=== PATIENT | male | born 1935 ===

== ENCOUNTER 2018-03-11 19:22 | Inpatient (IN) | payer MEDICARE, OTHER ==
[~2018-03-11] VITALS: Ht 165.1 cm; Wt 68.0 kg
[~2018-03-11 19:22] MED LIST: ATEN25TA PO; DIAZ5TAB4 PO; FOLI1TAB16 PO; MEGE400O4 PO; METO-295 PO; TAMS0.4C34 PO; VORT10TA PO
[2018-03-11] MEDS ORDERED: Z GUARD REMEDY PASTE 57 GM TUBE TOP PRN (19:45)
[2018-03-11] MEDS ORDERED: LOTE5DRO3 EACHEYE (20:17)
[2018-03-11] MEDS ORDERED: TRAM50TA2 PO (20:17)
[2018-03-11] MEDS ORDERED: AZEL6DRO5 EACHEYE (20:17)
[2018-03-11] MEDS ORDERED: PREG75CA PO (20:17)
[2018-03-11] MEDS ORDERED: THIA100T74 PO (20:17)
[2018-03-11] MEDS ORDERED: VORT10TA PO (20:17)
[2018-03-11] MEDS ORDERED: TAMS0.4C34 PO (20:17)
[2018-03-11] MEDS ORDERED: KETO120S6 TP (20:17)
[2018-03-11] MEDS ORDERED: ASPI-605 PO (20:17)
[2018-03-11] MEDS ORDERED: MEGE625O3 PO (20:17)
[2018-03-11] MEDS ORDERED: FAMO20TA8 PO (20:17)
[2018-03-11] MEDS ORDERED: ALPR1TAB7 PO (20:17)
[2018-03-11] MEDS ORDERED: METO-356 PO (20:17)
[2018-03-11] MEDS ORDERED: FOLI1TAB16 PO (20:17)
[2018-03-11] MEDS ORDERED: CLOP75TA33 PO (20:17)
[2018-03-11] MEDS ORDERED: LORA10TA7 PO (20:17)
[2018-03-11] MEDS ORDERED: ATOR80TA PO (20:17)
[2018-03-11 20:30] VITALS: BP 125/69
--- NOTE | 2018-03-11 20:30 | NUR ---
Patient is a new admit from [facility] arrived via ambulance/stretcher. Patient in stable condition with no acute distress noted. Vital signs within range upon arrival. Admit Dx of Acute CVA. Noted with right sided weakness. Patient is A/Ox1-2, with slurred speech & is Farsi speaking only. Daughter at the bedside & requesting to stay with patient at all times during hospital stay. MD Young aware of patient arrival to unit. Pertinent assessment completed upon arrival. Skin is intact. Bed in low position & locked. Call light placed within reach of patient. Will continue to monitor through shift.
[2018-03-11] MEDS ORDERED: DIAZEPAM 5 MG TABLET PO PRN (21:15)
--- NOTE | 2018-03-11 21:30 | NUR ---
Patient refusing stroke assessment upon arrival. Daughter of patient requesting for assessment/pics to be completed in AM or during the day tomorrow. Will endorse to day shift nurse.
[2018-03-11] MEDS ORDERED: KETOCONAZOLE 2% SHAMPOO 120 ML BOTTLE TP PRN (22:00)
[2018-03-12 06:18] VITALS: BP 129/69
--- NOTE | 2018-03-12 06:28 | NUR ---
Patient slept well through the night. No acute distress noted. Daughter remained at the bedside. Vital signs this AM within range. Needs attended to promptly. Safety measures maintained through the shift. Call light within reach. Will endorse to day shift nurse.
[2018-03-12 08:00] VITALS: BP 139/70
[2018-03-12] MEDS: THIAMINE HCL 100 MG TABLET PO SCH (08:49)
[2018-03-12] MEDS: PREGABALIN 25 MG CAPSULE PO SCH ×2 (08:50→17:46)
[2018-03-12] MEDS: CLOPIDOGREL 75 MG TABLET PO SCH (08:50)
[2018-03-12] MEDS: ASPIRIN EC 81 MG TABLET.DR PO SCH (08:50)
[2018-03-12] MEDS: TAMSULOSIN HCL 0.4 MG CAP.SR.24H PO SCH (08:50)
[2018-03-12] MEDS: FOLIC ACID 1 MG TABLET PO SCH (08:50)
[2018-03-12] MEDS: METOPROLOL SUCCINATE XL 25 MG TAB.SR.24H PO SCH (08:51)
[2018-03-12] MEDS: ATENOLOL 25 MG TABLET PO SCH (08:51)
[2018-03-12] MEDS ORDERED: MEGESTROL ACETATE 400 MG/10 ML LIQUID UDC PO SCH (09:00)
[2018-03-12] MEDS: FAMOTIDINE 20 MG TABLET PO SCH ×2 (09:00→17:47)
[2018-03-12] MEDS ORDERED: LOTEPREDNOL 0.5% OPHT DROP 5 ML BOTTLE EACHEYE SCH (09:00)
[2018-03-12 10:10] LABS: BASOPHILS # (AUTO) 0.1 K/uL (0.0-8.0); BASOPHILS % (AUTO) 0.9 % (0.0-2.0); EOSINOPHILS # (AUTO) 0.3 K/uL (0.0-0.7); EOSINOPHILS % (AUTO) 3.5 % (0.0-7.0); HEMATOCRIT 38.1 % (36.7-47.1); HEMOGLOBIN 12.8 g/dL (12.5-16.3); LYMPHOCYTES # (AUTO) 2.7 K/uL (20.0-40.0); LYMPHOCYTES % (AUTO) 30.7 % (20.5-51.5); MEAN CORPUSCULAR HEMOGLOBIN 33.8 uug (23.8-33.4); MEAN CORPUSCULAR HGB CONC 34 g/dL (32.5-36.3); MEAN CORPUSCULAR VOLUME 100.8 fL (73.0-96.2); MONOCYTES # (AUTO) 0.8 K/uL (2.0-10.0); MONOCYTES % (AUTO) 8.6 % (0.0-11.0); NEUTROPHILS % (AUTO) 56.3 % (38.5-71.5); PLATELET COUNT (AUTO) 185 K/uL (152-348); RED BLOOD CELL COUNT(AUTO) 3.78 MIL/uL (4.06-5.63); WHITE BLOOD COUNT (AUTO) 8.9 K/uL (3.6-10.2)
[2018-03-12] MEDS: MIRTAZAPINE 15 MG TABLET PO SCH ×2 (10:15→20:12)
[2018-03-12 10:24] LABS: ALANINE AMINOTRANSFERASE 32 U/L (16-63); ALKALINE PHOSPHATASE 59 U/L (50-136); ASPARTATE AMINOTRANSFERASE 33 U/L (15-37); BILIRUBIN,TOTAL 0.4 mg/dL (0.2-1.0); CARBON DIOXIDE 27 mmol/L (21-32); CHLORIDE 108 mmol/L (98-107); CHOLESTEROL 126 mg/dL (<200); CREATININE 1.4 mg/dL (0.6-1.3); GLUCOSE 91 mg/dL (74-106); HDL CHOLESTEROL 64 mg/dL (40-60); POTASSIUM 3.9 mmol/L (3.5-5.1); TOTAL PROTEIN, SERUM 6.5 g/dL (6.4-8.2); TRIGLYCERIDES 80 MG/DL (30-150); UREA NITROGEN, BLOOD 13 mg/dL (7-18)
[2018-03-12 16:00] VITALS: BP 132/74
[2018-03-12] MEDS: ACETAMINOPHEN 325 MG TABLET PO PRN (17:47)
--- NOTE | 2018-03-12 19:28 | NUR ---
Received pt in bed, awake and alert, able to communicate needs via daughter, who is at bedside. Per AM nurse gave ok for daughter to stay 24 hrs for care and translation. No acute distress noted. Denies pain or discomfort but verbalizing stress. All safety measures and fall precautions maintained. Call light and all personal belongings within reach. Will continue to monitor.
[2018-03-12] MEDS ORDERED: diphenhydrAMINE 25 MG CAP PO PRN (19:30)
[2018-03-12 19:50] VITALS: BP 140/79
[2018-03-12] MEDS: ATORVASTATIN 40 MG TABLET PO SCH (20:12)
[2018-03-13 06:07] VITALS: BP 115/52
[2018-03-13] MEDS: ACETAMINOPHEN 325 MG TABLET PO PRN (06:20)
[2018-03-13 07:09] VITALS: BP_SYST 110; BP_SYST 143; BP_DIAS 57; BP_DIAS 86
[2018-03-13] MEDS: CLOPIDOGREL 75 MG TABLET PO SCH (08:53)
[2018-03-13] MEDS: THIAMINE HCL 100 MG TABLET PO SCH (08:53)
[2018-03-13] MEDS: FAMOTIDINE 20 MG TABLET PO SCH (08:53)
[2018-03-13] MEDS: TAMSULOSIN HCL 0.4 MG CAP.SR.24H PO SCH (08:54)
[2018-03-13] MEDS: ASPIRIN EC 81 MG TABLET.DR PO SCH (08:54)
[2018-03-13] MEDS: FOLIC ACID 1 MG TABLET PO SCH (08:54)
[2018-03-13] MEDS: ATENOLOL 25 MG TABLET PO SCH (08:55)
[2018-03-13] MEDS: METOPROLOL SUCCINATE XL 25 MG TAB.SR.24H PO SCH (08:56)
[2018-03-13] MEDS: PREGABALIN 25 MG CAPSULE PO SCH ×2 (08:56→17:06)
[2018-03-13] MEDS: ALPRAZOLAM 0.5 MG TABLET PO PRN (08:59)
[2018-03-13] MEDS: NICOTINE 14 MG/24HR PATCH TD SCH (13:45)
[2018-03-13] MEDS: MAGNESIUM HYDROXIDE 30 ML LIQUID UDC PO PRN (13:46)
[2018-03-13 16:06] VITALS: BP 143/75
--- NOTE | 2018-03-13 18:52 | NUR ---
Pt has family visiting at the bedside currently. No complaint of pain. Bed in lowest and locked position. Side rails up x2. Pt compliant with all routinely scheduled medication administration, Xanax administered this morning for increased anxiety. All needs attended to promptly throughout the shift. Call light and personal belongings with reach. Pt seen by MD, eye drops d/c due r/t not being necessary at this time. Will continue to monitor and endorse to on coming shift lab technician.
[2018-03-13] MEDS: ATORVASTATIN 40 MG TABLET PO SCH (20:34)
[2018-03-13] MEDS: MIRTAZAPINE 15 MG TABLET PO SCH (20:36)
[2018-03-13 20:41] VITALS: BP 105/59
--- NOTE | 2018-03-14 01:07 | NUR ---
resting at the beginning of the shift. no acute distress noted. needs attended.daughter in with patient. tolerated po meds well.fall precautions maintained. admitted for CVA with right sided weakness. Speech slurred. Aspiration precautions. will monitor patient.
--- NOTE | 2018-03-14 05:09 | NUR ---
slept most of the shift. no acute distress noted needs attended. continent of bowel and bladder. repositioned for comfort.turned to sides. daughter at bedside.denies any pain nor any discomfort.
[2018-03-14 05:48] VITALS: BP 118/72
[2018-03-14 08:00] VITALS: BP 113/57
--- NOTE | 2018-03-14 08:45 | NUR ---
Received patient, awake alert x3. With daughter at bedside. No chest pains SOB. Still with Right sided weakness. Denies any pain. Patient refused Lyrica medications, discussed risks and benefits but patient still refused.
[2018-03-14] MEDS: PREGABALIN 25 MG CAPSULE PO SCH ×2 (09:00→17:26)
[2018-03-14] MEDS: METOPROLOL SUCCINATE XL 25 MG TAB.SR.24H PO SCH (09:02)
[2018-03-14] MEDS: FAMOTIDINE 20 MG TABLET PO SCH (09:02)
[2018-03-14] MEDS: TAMSULOSIN HCL 0.4 MG CAP.SR.24H PO SCH (09:03)
[2018-03-14] MEDS: THIAMINE HCL 100 MG TABLET PO SCH (09:03)
[2018-03-14] MEDS: CLOPIDOGREL 75 MG TABLET PO SCH (09:03)
[2018-03-14] MEDS: ATENOLOL 25 MG TABLET PO SCH (09:03)
[2018-03-14] MEDS: ASPIRIN EC 81 MG TABLET.DR PO SCH (09:04)
[2018-03-14] MEDS: NICOTINE 14 MG/24HR PATCH TD SCH (09:04)
[2018-03-14] MEDS: FOLIC ACID 1 MG TABLET PO SCH (09:07)
--- NOTE | 2018-03-14 11:53 | NUR ---
Up with physical and occupational therapy. In shower, tolerating well.
[2018-03-14] MEDS: [UNRECOGNIZED DRUG - OTHER] PO PRN (17:26)
[2018-03-14] MEDS: ATORVASTATIN 40 MG TABLET PO SCH (18:24)
[2018-03-14] MEDS: MIRTAZAPINE 15 MG TABLET PO SCH (18:24)
--- NOTE | 2018-03-14 19:55 | NUR ---
awake at beginning of shift. no acute distress noted. kept comfortable. needs attended. compliant with meds. on continous O2 @ 2L via nasal cannula. pulse ox 95%. daughter in with patient. voiding well. denies any pain nor any discomfort. will monitor patient.
[2018-03-14 20:25] VITALS: BP 105/64
--- NOTE | 2018-03-15 04:55 | NUR ---
slept well. no acute distress noted. daughter with patient. kept comfortable. voiding without difficulty. fall precautions maintained. siderails up for safety.
[2018-03-15 05:03] VITALS: BP 108/58
[2018-03-15 08:00] VITALS: BP 113/67
--- NOTE | 2018-03-15 08:45 | NUR ---
Received patient awake, alert x3. With daughter at bedside. Not in any form of distress. With pain over lower back, PRN Tylenol given.
[2018-03-15] MEDS: PREGABALIN 25 MG CAPSULE PO SCH ×2 (09:00→16:51)
[2018-03-15] MEDS: NICOTINE 14 MG/24HR PATCH TD SCH (09:01)
[2018-03-15] MEDS: FAMOTIDINE 20 MG TABLET PO SCH (09:02)
[2018-03-15] MEDS: CLOPIDOGREL 75 MG TABLET PO SCH (09:02)
[2018-03-15] MEDS: ATENOLOL 25 MG TABLET PO SCH (09:02)
[2018-03-15] MEDS: TAMSULOSIN HCL 0.4 MG CAP.SR.24H PO SCH (09:03)
[2018-03-15] MEDS: METOPROLOL SUCCINATE XL 25 MG TAB.SR.24H PO SCH (09:03)
[2018-03-15] MEDS: ASPIRIN EC 81 MG TABLET.DR PO SCH (09:03)
[2018-03-15] MEDS: FOLIC ACID 1 MG TABLET PO SCH (09:03)
[2018-03-15] MEDS: ACETAMINOPHEN 325 MG TABLET PO PRN ×2 (09:03→20:14)
[2018-03-15] MEDS: THIAMINE HCL 100 MG TABLET PO SCH (09:03)
--- NOTE | 2018-03-15 10:22 | NUR ---
Up with physical therapy, tolerating well. No complaints of pain or discomfort.
--- NOTE | 2018-03-15 13:48 | NUR ---
INTERDISCIPLINARY TEAM CONFERENCE
--- NOTE | 2018-03-15 15:15 | NUR ---
I agree Addendum: 03/15/18 at 1515 by LD BROWER OT Amended: Links added.
--- NOTE | 2018-03-15 15:16 | NUR ---
I agree Addendum: 03/15/18 at 1516 by LD BROWER OT Amended: Links added.
[2018-03-15 16:00] VITALS: BP 114/63
[2018-03-15] MEDS: [UNRECOGNIZED DRUG - OTHER] PO PRN (16:50)
[2018-03-15] MEDS: ATORVASTATIN 40 MG TABLET PO SCH (16:51)
[2018-03-15] MEDS: MIRTAZAPINE 15 MG TABLET PO SCH (18:03)
--- NOTE | 2018-03-15 19:30 | NUR ---
Patient stable at start of shift with no acute distress noted. Patient is A/Ox2-3, Farsi speaking, & hard to understand. Noted with slurred & gargled speech. Daughter at the bedside. Pertinent assessment completed. Skin is intact & clear. Patient complaining of SOB per daughter. O2 sat checked at 97% on 2L oxygen via NC. Elevated HOB. Patient's breathing is unlabored. Will continue to monitor for SOB. Vital signs within range. Bed in low position & locked. Call light within reach. Will continue to monitor through shift.
[2018-03-15] MEDS: MAGNESIUM HYDROXIDE 30 ML LIQUID UDC PO PRN (20:13)
[2018-03-15 21:06] VITALS: BP 119/67
[2018-03-16 08:03] VITALS: BP 103/54
[2018-03-16] MEDS: METOPROLOL SUCCINATE XL 25 MG TAB.SR.24H PO SCH (09:00)
[2018-03-16] MEDS: ATENOLOL 25 MG TABLET PO SCH (09:00)
[2018-03-16] MEDS: NICOTINE 14 MG/24HR PATCH TD SCH (09:46)
[2018-03-16] MEDS: TAMSULOSIN HCL 0.4 MG CAP.SR.24H PO SCH (09:46)
[2018-03-16] MEDS: ASPIRIN EC 81 MG TABLET.DR PO SCH (09:46)
[2018-03-16] MEDS: FAMOTIDINE 20 MG TABLET PO SCH (09:46)
[2018-03-16] MEDS: PREGABALIN 25 MG CAPSULE PO SCH ×2 (09:46→17:19)
[2018-03-16] MEDS: THIAMINE HCL 100 MG TABLET PO SCH (09:47)
[2018-03-16] MEDS: FOLIC ACID 1 MG TABLET PO SCH (09:47)
[2018-03-16] MEDS: CLOPIDOGREL 75 MG TABLET PO SCH (09:47)
[2018-03-16] MEDS: [UNRECOGNIZED DRUG - OTHER] PO PRN ×2 (09:48→20:06)
[2018-03-16 16:20] VITALS: BP 106/64
[2018-03-16] MEDS: MIRTAZAPINE 15 MG TABLET PO SCH (17:20)
[2018-03-16] MEDS: ACETAMINOPHEN ES 500 MG TABLET PO SCH (17:20)
[2018-03-16] MEDS: ATORVASTATIN 40 MG TABLET PO SCH (17:20)
--- NOTE | 2018-03-16 19:30 | NUR ---
PT ALERT AND ORIENTED. NO DISTRESS NOTED. COMPLAINT WITH NURSING CARE. FAMILY REQUESTING PT OWN MEDICATION FOR CONSTIPATION ALONG WITH THE DULCOLAX. BOTH GIVEN REQUESTED. SAFETY MAINTAINED. CALL LIGHT WITHIN REACH. WILL CONTINUE TO MONITOR.
[2018-03-16] MEDS: ACETAMINOPHEN 325 MG TABLET PO PRN (20:06)
[2018-03-16] MEDS: BISACODYL 5 MG TABLET.DR PO PRN (20:06)
[2018-03-16 20:41] VITALS: BP 115/61
--- NOTE | 2018-03-17 06:55 | NUR ---
PT RESTING IN BED. NO DISTRESS NOTED. COMPLIANT WITH NURSING CARE. SLEPT WELL THROUGHOUT THE NIGHT. CLEAN AND DRY. SAFETY MAINTAINED. CALL LIGHT WITHIN REACH.
[2018-03-17 08:20] VITALS: BP 117/69
[2018-03-17] MEDS: FAMOTIDINE 20 MG TABLET PO SCH (09:19)
[2018-03-17] MEDS: CLOPIDOGREL 75 MG TABLET PO SCH (09:19)
[2018-03-17] MEDS: THIAMINE HCL 100 MG TABLET PO SCH (09:19)
[2018-03-17] MEDS: ACETAMINOPHEN ES 500 MG TABLET PO SCH ×2 (09:19→17:53)
[2018-03-17] MEDS: ASPIRIN EC 81 MG TABLET.DR PO SCH (09:19)
[2018-03-17] MEDS: FOLIC ACID 1 MG TABLET PO SCH (09:19)
[2018-03-17] MEDS: PREGABALIN 25 MG CAPSULE PO SCH ×2 (09:20→17:53)
[2018-03-17] MEDS: NICOTINE 14 MG/24HR PATCH TD SCH (09:20)
[2018-03-17] MEDS: TAMSULOSIN HCL 0.4 MG CAP.SR.24H PO SCH (09:20)
[2018-03-17] MEDS: ATENOLOL 25 MG TABLET PO SCH (09:21)
[2018-03-17] MEDS: METOPROLOL SUCCINATE XL 25 MG TAB.SR.24H PO SCH (09:21)
[2018-03-17 16:05] VITALS: BP 127/64
[2018-03-17] MEDS: MIRTAZAPINE 15 MG TABLET PO SCH (17:54)
[2018-03-17] MEDS: ATORVASTATIN 40 MG TABLET PO SCH (17:54)
[2018-03-17] MEDS: [UNRECOGNIZED DRUG - OTHER] PO PRN (17:55)
[2018-03-17 19:30] VITALS: BP 128/70
--- NOTE | 2018-03-17 19:45 | NUR ---
Received pt in bed, awake and alert with daughter at bedside. Verbally responsive and able to communicate basic needs. Denies pain or discomfort at this time. No facial indications of pain noted. No acute distress noted. All safety measures and fall precautions maintained. Call light and all personal belongings within reach. Will continue to monitor.
--- NOTE | 2018-03-18 06:59 | NUR ---
Pt SLEPT WELL THROUGHOUT THE NIGHT WITHOUT ANY DISRUPTIONS. IN STABLE CONDITION, NO DISTRESS NOTED. CONTINUES TO BE COMPLIANT AND COOPERATIVE WITH MEDS AND CARE STAFF.
[2018-03-18 08:00] VITALS: BP 131/74
[2018-03-18] MEDS: NICOTINE 14 MG/24HR PATCH TD SCH (08:40)
[2018-03-18] MEDS: THIAMINE HCL 100 MG TABLET PO SCH (08:41)
[2018-03-18] MEDS: ACETAMINOPHEN ES 500 MG TABLET PO SCH ×2 (08:41→17:15)
[2018-03-18] MEDS: FAMOTIDINE 20 MG TABLET PO SCH (08:41)
[2018-03-18] MEDS: FOLIC ACID 1 MG TABLET PO SCH (08:41)
[2018-03-18] MEDS: CLOPIDOGREL 75 MG TABLET PO SCH (08:41)
[2018-03-18] MEDS: TAMSULOSIN HCL 0.4 MG CAP.SR.24H PO SCH (08:41)
[2018-03-18] MEDS: PREGABALIN 25 MG CAPSULE PO SCH ×2 (08:41→17:15)
[2018-03-18] MEDS: ASPIRIN EC 81 MG TABLET.DR PO SCH (08:41)
[2018-03-18] MEDS: MULTIVIT, IRON, MIN NO. 8, FA TABLET PO SCH (08:41)
[2018-03-18] MEDS: ATENOLOL 25 MG TABLET PO SCH (08:42)
[2018-03-18] MEDS: METOPROLOL SUCCINATE XL 25 MG TAB.SR.24H PO SCH (08:42)
--- NOTE | 2018-03-18 09:31 | NUR ---
patient noted sitting up on the side of the bed, family at bedside, no complaints of pain, no signs of distress noted, call light placed in reach, bed locked and in lowest position, x 2 bed rails
[2018-03-18 16:00] VITALS: BP 106/59
--- NOTE | 2018-03-18 16:21 | NUR ---
I agree Addendum: 03/18/18 at 1622 by LD BROWER OT Amended: Links added.
[2018-03-18] MEDS: ATORVASTATIN 40 MG TABLET PO SCH (17:15)
[2018-03-18] MEDS: MIRTAZAPINE 15 MG TABLET PO SCH (17:16)
[2018-03-18] MEDS: [UNRECOGNIZED DRUG - OTHER] PO PRN (17:18)
[2018-03-18 19:30] VITALS: BP 145/77
--- NOTE | 2018-03-18 20:00 | NUR ---
Resting comfortably in bed, with at bedside. 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 Per , pt is fully oriented. Speech somewhat garbled. Nursing comfort measures observed. HOB up at all times; aspiration precautions observed. Safety measures maintained.
[2018-03-18] MEDS: ACETAMINOPHEN 325 MG TABLET PO PRN (20:10)
[2018-03-19] MEDS: ACETAMINOPHEN 325 MG TABLET PO PRN (02:38)
--- NOTE | 2018-03-19 02:39 | NUR ---
Pt WOKE UP COMPLAINING OF PAIN ON LEFT LEG. REQUESTED FOR PAIN MEDS, VS STABLE, ADMINISTERED TYLENOL 650 MG PO PRN PER MD ORDER.
[2018-03-19 07:43] LABS: BASOPHILS % (AUTO) 0.3 % (0.0-2.0); EOSINOPHILS # (AUTO) 0.5 K/uL (0.0-0.7); EOSINOPHILS % (AUTO) 4.7 % (0.0-7.0); HEMATOCRIT 33.5 % (36.7-47.1); HEMOGLOBIN 11.5 g/dL (12.5-16.3); LYMPHOCYTES # (AUTO) 4.9 K/uL (20.0-40.0); LYMPHOCYTES % (AUTO) 46.1 % (20.5-51.5); MEAN CORPUSCULAR HEMOGLOBIN 34.5 uug (23.8-33.4); MEAN CORPUSCULAR HGB CONC 34 g/dL (32.5-36.3); MEAN CORPUSCULAR VOLUME 100.3 fL (73.0-96.2); MONOCYTES % (AUTO) 9.1 % (0.0-11.0); NEUTROPHILS # (AUTO) 4.2 K/uL (1.8-8.9); NEUTROPHILS % (AUTO) 39.8 % (38.5-71.5); PLATELET COUNT (AUTO) 203 K/uL (152-348); RED BLOOD CELL COUNT(AUTO) 3.34 MIL/uL (4.06-5.63); WHITE BLOOD COUNT (AUTO) 10.7 K/uL (3.6-10.2)
[2018-03-19 07:45] LABS: ALANINE AMINOTRANSFERASE 29 U/L (16-63); ALKALINE PHOSPHATASE 67 U/L (50-136); ASPARTATE AMINOTRANSFERASE 17 U/L (15-37); BILIRUBIN,TOTAL 0.1 mg/dL (0.2-1.0); CARBON DIOXIDE 29 mmol/L (21-32); CHLORIDE 108 mmol/L (98-107); CREATININE 1.6 mg/dL (0.6-1.3); GLUCOSE 90 mg/dL (74-106); POTASSIUM 4.5 mmol/L (3.5-5.1); TOTAL PROTEIN, SERUM 6.2 g/dL (6.4-8.2); UREA NITROGEN, BLOOD 30 mg/dL (7-18)
--- NOTE | 2018-03-19 07:49 | NUR ---
Patient noted resting in bed with eyes closed, daughter noted at bedside, no facial cues of pain, no signs of distress noted, call light in reach, bed locked and in lowest position, x [address], all needs met at this time.
[2018-03-19 08:00] VITALS: BP 113/66
[2018-03-19] MEDS: ASPIRIN EC 81 MG TABLET.DR PO SCH (08:44)
[2018-03-19] MEDS: PREGABALIN 25 MG CAPSULE PO SCH ×2 (08:44→17:17)
[2018-03-19] MEDS: FOLIC ACID 1 MG TABLET PO SCH (08:45)
[2018-03-19] MEDS: MULTIVIT, IRON, MIN NO. 8, FA TABLET PO SCH (08:45)
[2018-03-19] MEDS: ATENOLOL 25 MG TABLET PO SCH (08:45)
[2018-03-19] MEDS: ACETAMINOPHEN ES 500 MG TABLET PO SCH ×2 (08:46→17:17)
[2018-03-19] MEDS: TAMSULOSIN HCL 0.4 MG CAP.SR.24H PO SCH (08:46)
[2018-03-19] MEDS: THIAMINE HCL 100 MG TABLET PO SCH (08:46)
[2018-03-19] MEDS: METOPROLOL SUCCINATE XL 25 MG TAB.SR.24H PO SCH (08:46)
[2018-03-19] MEDS: CLOPIDOGREL 75 MG TABLET PO SCH (08:47)
[2018-03-19] MEDS: FAMOTIDINE 20 MG TABLET PO SCH (08:47)
[2018-03-19] MEDS: NICOTINE 14 MG/24HR PATCH TD SCH (08:47)
[2018-03-19 15:19] LABS: *BILIRUBIN,URIN NEGATIVE (NEGATIVE); *BLOOD, URINE NEGATIVE (NEGATIVE); *CLARITY,URINE CLEAR (CLEAR); *COLOR,URINE YELLOW (YELLOW); *KETONES,URINE NEGATIVE (NEGATIVE); *PROTEIN,URINE NEGATIVE (NEGATIVE); *UROBILINOGEN,URINE 0.2 E.U./dl (NORMAL); LEUKOCYTE ESTERASE ,URINE NEGATIVE (NEGATIVE); NITRITE, URINE NEGATIVE (NEGATIVE); PH,URINE 5.5 (5.0-8.0); UGLUCOSE NEGATIVE (NEGATIVE)
[2018-03-19 15:26] LABS: BACTERIA,URINE NONE SEEN /HPF (NONE SEEN); RBC,URINE 0-3 /HPF (0-3); SQUAMOUS EPITHELIAL CELL,UR FEW /HPF (NONE SEEN); WBC,URINE NONE SEEN /HPF (0-3)
--- NOTE | 2018-03-19 16:18 | NUR ---
I agree Addendum: 03/19/18 at 1618 by LD BROWER OT Amended: Links added.
--- NOTE | 2018-03-19 16:19 | NUR ---
I agree Addendum: 03/19/18 at 1619 by LD BROWER OT Amended: Links added.
[2018-03-19] MEDS: MIRTAZAPINE 15 MG TABLET PO SCH (17:17)
[2018-03-19] MEDS: ATORVASTATIN 40 MG TABLET PO SCH (17:17)
--- NOTE | 2018-03-19 20:00 | NUR ---
RECEIVED PATIENT ASLEEP IN BED. EASILY AROUSABLE, BUT FALLS BACK ASLEEP. NO S/S OF ANY PAIN OR DISCOMFORT. VS WNL. NO RESP. DISTRESS NOTED. CALL LIGHT IN REACH. ALL NEEDS ATTENDED. WILL CONTINUE TO MONITOR AND ASSESS.
[2018-03-19 21:08] VITALS: BP 127/60
--- NOTE | 2018-03-20 04:49 | NUR ---
PATIENT ASLEEP IN BED. SLEPT WELL THROUGHOUT THE SHIFT. NO S/S OF ANY PAIN OR DISCOMFORT. NO RESP. DISTRESS NOTED. BED ALARM ON. CALL LIGHT IN REACH. ALL NEEDS ATTENDED. WILL CONTINUE TO MONITOR AND ASSESS.
[2018-03-20 05:25] VITALS: BP 125/68
[2018-03-20 08:15] VITALS: BP 126/68
[2018-03-20] MEDS: PREGABALIN 25 MG CAPSULE PO SCH ×2 (09:00→17:58)
[2018-03-20] MEDS: ACETAMINOPHEN ES 500 MG TABLET PO SCH ×2 (10:07→17:58)
[2018-03-20] MEDS: FOLIC ACID 1 MG TABLET PO SCH (10:07)
[2018-03-20] MEDS: NICOTINE 14 MG/24HR PATCH TD SCH (10:07)
[2018-03-20] MEDS: CLOPIDOGREL 75 MG TABLET PO SCH (10:08)
[2018-03-20] MEDS: TAMSULOSIN HCL 0.4 MG CAP.SR.24H PO SCH (10:08)
[2018-03-20] MEDS: THIAMINE HCL 100 MG TABLET PO SCH (10:08)
[2018-03-20] MEDS: ASPIRIN EC 81 MG TABLET.DR PO SCH (10:08)
[2018-03-20] MEDS: MULTIVIT, IRON, MIN NO. 8, FA TABLET PO SCH (10:08)
[2018-03-20] MEDS: FAMOTIDINE 20 MG TABLET PO SCH (10:08)
[2018-03-20] MEDS: METOPROLOL SUCCINATE XL 25 MG TAB.SR.24H PO SCH (10:14)
[2018-03-20] MEDS: ATENOLOL 25 MG TABLET PO SCH (10:14)
--- NOTE | 2018-03-20 15:13 | NUR ---
SBAR report received, board updated. Pt assessed, denies any c/o pain or acute distress. Pt compliant with all morning medication administration refusing scheduled Lyrica, taking each pill one at a time whole without difficulty. Pt able to make his needs known. Daughter visiting at bedside currently. Bed in locked, lowest position with side rails up x2. All comfort and safety needs met. Call light and personal belongings placed within reach, will continue to monitor.
[2018-03-20 17:17] VITALS: BP 116/67
[2018-03-20] MEDS: MIRTAZAPINE 15 MG TABLET PO SCH (17:58)
[2018-03-20] MEDS: ATORVASTATIN 40 MG TABLET PO SCH (17:59)
[2018-03-20 21:10] VITALS: BP 142/55
--- NOTE | 2018-03-21 05:55 | NUR ---
Patient slept comfortably throughout the night. No c/o pain and discomfort. No acute distress. No SOB. Kept clean and dry. All needs attended to promptly. Call light within reach. Will continue to monitor.
[2018-03-21 06:44] VITALS: BP 129/71
[2018-03-21 08:00] VITALS: BP 138/64
[2018-03-21] MEDS: MULTIVIT, IRON, MIN NO. 8, FA TABLET PO SCH (08:54)
[2018-03-21] MEDS: ASPIRIN EC 81 MG TABLET.DR PO SCH (08:54)
[2018-03-21] MEDS: NICOTINE 14 MG/24HR PATCH TD SCH (08:54)
[2018-03-21] MEDS: TAMSULOSIN HCL 0.4 MG CAP.SR.24H PO SCH (08:54)
[2018-03-21] MEDS: FOLIC ACID 1 MG TABLET PO SCH (08:54)
[2018-03-21] MEDS: FAMOTIDINE 20 MG TABLET PO SCH (08:54)
[2018-03-21] MEDS: ACETAMINOPHEN ES 500 MG TABLET PO SCH ×2 (08:54→17:18)
[2018-03-21] MEDS: THIAMINE HCL 100 MG TABLET PO SCH (08:54)
[2018-03-21] MEDS: ATENOLOL 25 MG TABLET PO SCH (08:55)
[2018-03-21] MEDS: CLOPIDOGREL 75 MG TABLET PO SCH (08:55)
[2018-03-21] MEDS: METOPROLOL SUCCINATE XL 25 MG TAB.SR.24H PO SCH (08:56)
[2018-03-21] MEDS: PREGABALIN 25 MG CAPSULE PO SCH ×2 (09:00→17:18)
--- NOTE | 2018-03-21 14:43 | NUR ---
SBAR report received, board updated. Pt assessed, no c/o discomfort or SOB. Pt compliant with all routine morning medication administration, taking whole. Pt refused Lyrica this am as requested by daughter. Pt assisted to bathroom and back bed safely with walker. Pt able to make needs known. All safety and comfort measures met. Call light and personal belongings placed within reach. Bed in locked and lowest position with side rails up x2. Will continue to monitor. Pt family visiting at bedside currently.
[2018-03-21 15:35] VITALS: BP 134/74
[2018-03-21] MEDS: MIRTAZAPINE 15 MG TABLET PO SCH (17:18)
[2018-03-21] MEDS: ATORVASTATIN 40 MG TABLET PO SCH (17:18)
[2018-03-21 20:25] VITALS: BP 120/60
--- NOTE | 2018-03-22 04:20 | NUR ---
quiet night. slept most of the shift. needs attended. kept comfortable. no acute distress noted. OOB to the BR with assistance. Voiding without difficulty. Fall precautions maintained. Siderails up safety. will monitor patient. Bed alarm on.
[2018-03-22 06:07] VITALS: BP 112/56
[2018-03-22 08:27] VITALS: BP 127/67
[2018-03-22] MEDS: CLOPIDOGREL 75 MG TABLET PO SCH (08:28)
[2018-03-22] MEDS: FAMOTIDINE 20 MG TABLET PO SCH (08:28)
[2018-03-22] MEDS: MULTIVIT, IRON, MIN NO. 8, FA TABLET PO SCH (08:28)
[2018-03-22] MEDS: THIAMINE HCL 100 MG TABLET PO SCH (08:28)
[2018-03-22] MEDS: ASPIRIN EC 81 MG TABLET.DR PO SCH (08:28)
[2018-03-22] MEDS: NICOTINE 21 MG/24HR PATCH TD SCH (08:28)
[2018-03-22] MEDS: FOLIC ACID 1 MG TABLET PO SCH (08:28)
[2018-03-22] MEDS: ACETAMINOPHEN ES 500 MG TABLET PO SCH ×2 (08:28→17:19)
[2018-03-22] MEDS: TAMSULOSIN HCL 0.4 MG CAP.SR.24H PO SCH (08:29)
[2018-03-22] MEDS: MEGESTROL ACETATE 20 MG TABLET PO SCH ×2 (08:29→17:19)
[2018-03-22] MEDS: ATENOLOL 25 MG TABLET PO SCH (08:30)
[2018-03-22] MEDS: METOPROLOL SUCCINATE XL 25 MG TAB.SR.24H PO SCH (08:30)
[2018-03-22] MEDS: PREGABALIN 25 MG CAPSULE PO SCH ×2 (08:36→17:20)
--- NOTE | 2018-03-22 10:00 | NUR ---
SBAR report received, board updated. Pt assessed, no c/o pain or acute distress. Bed in locked and lowest position, with side rails up x2. Daughter visiting at bedside. Pt & daughter request Lyrica be held at this time, but compliant with all other routine morning medication administration. Able to make needs known. All needs met at this time. Call light within reach. Will continue to monitor.
--- NOTE | 2018-03-22 13:32 | NUR ---
INTERDISCIPLINARY TEAM CONFERENCE
[2018-03-22 16:04] VITALS: BP 101/54
[2018-03-22] MEDS: MIRTAZAPINE 15 MG TABLET PO SCH (17:19)
[2018-03-22] MEDS: ATORVASTATIN 40 MG TABLET PO SCH (17:19)
--- NOTE | 2018-03-22 19:30 | NUR ---
Patient lying comfortably at start of shift with no acute distress noted. A/Ox3 & able to make needs known. Pertinent assessment completed. Vital signs within range. Noted with slurred speech when talking in his own language. patient able to move Upper & lower extremities. Per day shift nurse, patient has been improving & ambulating around the unit safely. Encouraged patient to use call light when needing to ambulate for safety. Bed in low position & locked. Call light within reach of patient. Will continue to monitor through shift.
[2018-03-22 20:39] VITALS: BP 126/50
[2018-03-23 07:56] VITALS: BP 108/69
--- NOTE | 2018-03-23 08:00 | NUR ---
Patient awake, verbally responsive, not in any form of acute distress. No complain of any pain or discomfort. Call light placed within reach. Reminded to use call light when in need of assistance. Assisted to his needs.
[2018-03-23] MEDS: NICOTINE 21 MG/24HR PATCH TD SCH (09:17)
[2018-03-23] MEDS: MEGESTROL ACETATE 20 MG TABLET PO SCH ×2 (09:18→17:17)
[2018-03-23] MEDS: PREGABALIN 25 MG CAPSULE PO SCH ×2 (09:19→17:16)
[2018-03-23] MEDS: ASPIRIN EC 81 MG TABLET.DR PO SCH (09:19)
[2018-03-23] MEDS: CLOPIDOGREL 75 MG TABLET PO SCH (09:19)
[2018-03-23] MEDS: ACETAMINOPHEN ES 500 MG TABLET PO SCH ×2 (09:20→17:16)
[2018-03-23] MEDS: THIAMINE HCL 100 MG TABLET PO SCH (09:20)
[2018-03-23] MEDS: MULTIVIT, IRON, MIN NO. 8, FA TABLET PO SCH (09:20)
[2018-03-23] MEDS: FOLIC ACID 1 MG TABLET PO SCH (09:20)
[2018-03-23] MEDS: TAMSULOSIN HCL 0.4 MG CAP.SR.24H PO SCH (09:20)
[2018-03-23] MEDS: FAMOTIDINE 20 MG TABLET PO SCH (09:20)
[2018-03-23] MEDS: ATENOLOL 25 MG TABLET PO SCH (09:21)
--- NOTE | 2018-03-23 11:10 | NUR ---
Received an order from Dr. Radha Alvarado who is making her rounds to increase Remeron to 15mg Q PM. Daughter at bedside aware.
[2018-03-23] MEDS: METOPROLOL SUCCINATE XL 25 MG TAB.SR.24H PO SCH (12:21)
[2018-03-23] MEDS: MIRTAZAPINE 15 MG TABLET PO SCH (17:17)
[2018-03-23] MEDS: ATORVASTATIN 40 MG TABLET PO SCH (17:17)
--- NOTE | 2018-03-23 19:30 | NUR ---
Patient noted resting in bed, easily arousable, no acute distress at start of shift. Pertinent assessment completed. Vital signs WNL. Patient is Farsi speaking but able to make his needs known. Bed in low position & locked. Call light within reach. Will continue to monitor through shift.
[2018-03-23 20:01] VITALS: BP 105/45
[2018-03-24 07:49] LABS: BASOPHILS # (AUTO) 0.1 K/uL (0.0-8.0); EOSINOPHILS # (AUTO) 0.4 K/uL (0.0-0.7); EOSINOPHILS % (AUTO) 4.4 % (0.0-7.0); HEMOGLOBIN 11.3 g/dL (12.5-16.3); LYMPHOCYTES # (AUTO) 3.3 K/uL (20.0-40.0); LYMPHOCYTES % (AUTO) 36.5 % (20.5-51.5); MEAN CORPUSCULAR HEMOGLOBIN 34.1 uug (23.8-33.4); MEAN CORPUSCULAR HGB CONC 34 g/dL (32.5-36.3); MEAN CORPUSCULAR VOLUME 99.1 fL (73.0-96.2); MONOCYTES # (AUTO) 0.9 K/uL (2.0-10.0); MONOCYTES % (AUTO) 10.2 % (0.0-11.0); NEUTROPHILS # (AUTO) 4.4 K/uL (1.8-8.9); NEUTROPHILS % (AUTO) 47.9 % (38.5-71.5); PLATELET COUNT (AUTO) 199 K/uL (152-348); RED BLOOD CELL COUNT(AUTO) 3.33 MIL/uL (4.06-5.63); WHITE BLOOD COUNT (AUTO) 9.1 K/uL (3.6-10.2)
[2018-03-24 08:00] VITALS: BP 145/67
[2018-03-24] MEDS: FOLIC ACID 1 MG TABLET PO SCH (08:50)
[2018-03-24] MEDS: MULTIVIT, IRON, MIN NO. 8, FA TABLET PO SCH (08:50)
[2018-03-24] MEDS: THIAMINE HCL 100 MG TABLET PO SCH (08:50)
[2018-03-24] MEDS: ACETAMINOPHEN ES 500 MG TABLET PO SCH ×2 (08:50→17:27)
[2018-03-24] MEDS: FAMOTIDINE 20 MG TABLET PO SCH (08:50)
[2018-03-24] MEDS: ASPIRIN EC 81 MG TABLET.DR PO SCH (08:50)
[2018-03-24] MEDS: TAMSULOSIN HCL 0.4 MG CAP.SR.24H PO SCH (08:51)
[2018-03-24] MEDS: CLOPIDOGREL 75 MG TABLET PO SCH (08:51)
[2018-03-24] MEDS: PREGABALIN 25 MG CAPSULE PO SCH ×2 (08:52→17:27)
[2018-03-24] MEDS: METOPROLOL SUCCINATE XL 25 MG TAB.SR.24H PO SCH (08:54)
[2018-03-24] MEDS: NICOTINE 21 MG/24HR PATCH TD SCH (08:54)
[2018-03-24] MEDS: ATENOLOL 25 MG TABLET PO SCH (08:58)
[2018-03-24] MEDS: MEGESTROL ACETATE 20 MG TABLET PO SCH ×2 (08:59→17:26)
[2018-03-24 16:34] VITALS: BP 115/61
[2018-03-24] MEDS: MIRTAZAPINE 15 MG TABLET PO SCH (17:27)
[2018-03-24] MEDS: ATORVASTATIN 40 MG TABLET PO SCH (17:27)
--- NOTE | 2018-03-24 17:55 | NUR ---
DAILY NURSING NOTE Patient is awake and alert, not in pain and not in acute distress, compliant with plan of care. Patient was provided with safety in his surroundings, aware of his limitations and able to make his needs known. Needs attended promptly, call light placed in easy reach. Encouraged to eat his meals, he was compliant as well.
--- NOTE | 2018-03-24 19:57 | NUR ---
Received pt lying on bed comfortably, asleep but easily arousable. No acute distress noted. Denies pain at this time. No SOB noted. Kept clean, dry and comfortable. Encouraged to verbalize needs and concerns and to call for assistance if needed. Call light and personal belongings within reach. Safety and fall precautions observed and maintained. All needs attended.
[2018-03-24 21:42] VITALS: BP 118/65
[2018-03-25 05:02] VITALS: BP 121/64
[2018-03-25 07:40] LABS: CARBON DIOXIDE 30 mmol/L (21-32); CHLORIDE 108 mmol/L (98-107); CREATININE 1.6 mg/dL (0.6-1.3); GLUCOSE 89 mg/dL (74-106); MAGNESIUM 2.4 mg/dL (1.8-2.4); POTASSIUM 4.5 mmol/L (3.5-5.1); UREA NITROGEN, BLOOD 23 mg/dL (7-18)
--- NOTE | 2018-03-25 08:00 | NUR ---
Received patient awake, verbally responsive, not in any form of acute distress. No complain of any pain or discomfort. Call light placed within reach. Assisted to his needs.
[2018-03-25] MEDS: MULTIVIT, IRON, MIN NO. 8, FA TABLET PO SCH (10:15)
[2018-03-25] MEDS: THIAMINE HCL 100 MG TABLET PO SCH (10:15)
[2018-03-25] MEDS: FOLIC ACID 1 MG TABLET PO SCH (10:15)
[2018-03-25] MEDS: ASPIRIN EC 81 MG TABLET.DR PO SCH (10:15)
[2018-03-25] MEDS: TAMSULOSIN HCL 0.4 MG CAP.SR.24H PO SCH (10:16)
[2018-03-25] MEDS: MEGESTROL ACETATE 20 MG TABLET PO SCH ×2 (10:16→17:21)
[2018-03-25] MEDS: PREGABALIN 25 MG CAPSULE PO SCH ×2 (10:16→17:20)
[2018-03-25] MEDS: CLOPIDOGREL 75 MG TABLET PO SCH (10:16)
[2018-03-25] MEDS: FAMOTIDINE 20 MG TABLET PO SCH (10:16)
[2018-03-25] MEDS: ACETAMINOPHEN ES 500 MG TABLET PO SCH ×2 (10:16→17:21)
[2018-03-25] MEDS: ATENOLOL 25 MG TABLET PO SCH (10:17)
[2018-03-25] MEDS: NICOTINE 21 MG/24HR PATCH TD SCH (10:17)
[2018-03-25] MEDS: METOPROLOL SUCCINATE XL 25 MG TAB.SR.24H PO SCH (10:18)
[2018-03-25 15:54] VITALS: BP 108/59
[2018-03-25] MEDS: MIRTAZAPINE 15 MG TABLET PO SCH (17:21)
[2018-03-25] MEDS: ATORVASTATIN 40 MG TABLET PO SCH (17:21)
--- NOTE | 2018-03-25 17:24 | NUR ---
Patient sitting on the side of bed, just done having dinner. Patient took due medications without difficulty. Denies any pain or discomfort at this time. Needs attended to.
[2018-03-25 19:53] VITALS: BP 110/56
--- NOTE | 2018-03-25 20:23 | NUR ---
resting in bed at beginning of shift. needs attended. kept comfortable. voiding without difficulty. vital signs stable. denies any pain nor any discomfort. no acute distress noted. compliant with the care.
--- NOTE | 2018-03-26 05:50 | NUR ---
slept well. uneventful night. denies any pain nor any discomfort. voiding well. fall precautions maintained.
--- NOTE | 2018-03-26 08:02 | NUR ---
Patient awake, in bed, verbally responsive, able to make needs known, He denies any pain or discomfort at this time. Not in any form of acute distress. Call light placed within reach.
[2018-03-26 08:36] VITALS: BP 130/65
[2018-03-26] MEDS: FOLIC ACID 1 MG TABLET PO SCH (09:34)
[2018-03-26] MEDS: TAMSULOSIN HCL 0.4 MG CAP.SR.24H PO SCH (09:34)
[2018-03-26] MEDS: MULTIVIT, IRON, MIN NO. 8, FA TABLET PO SCH (09:34)
[2018-03-26] MEDS: PREGABALIN 25 MG CAPSULE PO SCH ×2 (09:34→16:27)
[2018-03-26] MEDS: ASPIRIN EC 81 MG TABLET.DR PO SCH (09:34)
[2018-03-26] MEDS: THIAMINE HCL 100 MG TABLET PO SCH (09:34)
[2018-03-26] MEDS: FAMOTIDINE 20 MG TABLET PO SCH (09:34)
[2018-03-26] MEDS: MEGESTROL ACETATE 20 MG TABLET PO SCH ×2 (09:34→16:27)
[2018-03-26] MEDS: ACETAMINOPHEN ES 500 MG TABLET PO SCH ×2 (09:34→16:28)
[2018-03-26] MEDS: CLOPIDOGREL 75 MG TABLET PO SCH (09:34)
[2018-03-26] MEDS: NICOTINE 21 MG/24HR PATCH TD SCH (09:35)
[2018-03-26] MEDS: ATENOLOL 25 MG TABLET PO SCH (09:35)
[2018-03-26] MEDS: METOPROLOL SUCCINATE XL 25 MG TAB.SR.24H PO SCH (09:35)
[2018-03-26] MEDS: ATORVASTATIN 40 MG TABLET PO SCH (17:09)
[2018-03-26] MEDS: MIRTAZAPINE 15 MG TABLET PO SCH (17:09)
[2018-03-26] MEDS: BISACODYL 5 MG TABLET.DR PO PRN (17:09)
--- NOTE | 2018-03-26 19:00 | NUR ---
Received patient in bed. Alert and responsive. Able to make needs known. Denies any pain and discomfort. No acute distress. No SOB. Kept clean and dry. All needs attended to promptly. Call light within reach. Will continue to monitor.
[2018-03-26 21:09] VITALS: BP 103/58
[2018-03-27 05:30] VITALS: BP 118/60
--- NOTE | 2018-03-27 06:13 | NUR ---
Patient slept comfortably through the night. No c/o pain and discomfort. No acute distress. No SOB. Kept clean and dry. All needs attended to promptly. Call light within reach. Will continue to monitor.
--- NOTE | 2018-03-27 08:05 | NUR ---
Received patient awake, alert x4. With pain over right shoulder, non-radiating and tolerable. Not in any form of distress. Call light within reach. Will continue to monitor.
[2018-03-27 08:32] VITALS: BP 119/63
[2018-03-27] MEDS: ATENOLOL 25 MG TABLET PO SCH (08:49)
[2018-03-27] MEDS: MEGESTROL ACETATE 20 MG TABLET PO SCH ×2 (08:49→17:19)
[2018-03-27] MEDS: THIAMINE HCL 100 MG TABLET PO SCH (08:49)
[2018-03-27] MEDS: TAMSULOSIN HCL 0.4 MG CAP.SR.24H PO SCH (08:49)
[2018-03-27] MEDS: FOLIC ACID 1 MG TABLET PO SCH (08:49)
[2018-03-27] MEDS: ASPIRIN EC 81 MG TABLET.DR PO SCH (08:50)
[2018-03-27] MEDS: METOPROLOL SUCCINATE XL 25 MG TAB.SR.24H PO SCH (08:50)
[2018-03-27] MEDS: CLOPIDOGREL 75 MG TABLET PO SCH (08:50)
[2018-03-27] MEDS: FAMOTIDINE 20 MG TABLET PO SCH (08:51)
[2018-03-27] MEDS: NICOTINE 21 MG/24HR PATCH TD SCH (08:51)
[2018-03-27] MEDS: MULTIVIT, IRON, MIN NO. 8, FA TABLET PO SCH (08:51)
[2018-03-27] MEDS: ACETAMINOPHEN ES 500 MG TABLET PO SCH ×2 (08:53→17:19)
[2018-03-27] MEDS: PREGABALIN 25 MG CAPSULE PO SCH ×2 (09:00→17:19)
--- NOTE | 2018-03-27 09:00 | NUR ---
With daughter at bedside. Routine PRN Tylenol given for left shoulder pain. Patient's daughter refused patient to take Lyrica and says it makes him sleepy and interferes with therapy, claims patient only takes it at night. Discussed risks and benefits, patient's daughter still refused.
[2018-03-27] MEDS ORDERED: ZOLPIDEM 5 MG TABLET PO PRN ×2 (14:15→14:45)
[2018-03-27] MEDS: ATORVASTATIN 40 MG TABLET PO SCH (17:19)
[2018-03-27] MEDS: MIRTAZAPINE 15 MG TABLET PO SCH (17:19)
[2018-03-27] MEDS: BISACODYL 5 MG TABLET.DR PO PRN (17:19)
[2018-03-27] MEDS: ALPRAZOLAM 0.5 MG TABLET PO PRN (18:12)
--- NOTE | 2018-03-27 20:00 | NUR ---
Received pt lying on bed comfortably, asleep but easily arousable. No apparent distress noted. Daughter at bedside during this time. No complaints of pain or discomfort. No SOB noted. Kept clean, dry and comfortable. Encouraged to verbalize needs and concerns and to call for assistance if needed. Call light and personal belongings within reach. Safety and fall precautions observed and maintained. All needs attended.
[2018-03-27 20:25] VITALS: BP 127/59
[2018-03-28 06:26] VITALS: BP 135/70
--- NOTE | 2018-03-28 06:47 | NUR ---
Patient slept comfortably throughout the shift with no signs/symptoms of distress noted. No complaints of pain or discomfort. Breathing even and unlabored with normal respirations. frequently checked for safety. Call light within reach. All needs attended.
[2018-03-28 06:57] LABS: ALANINE AMINOTRANSFERASE 41 U/L (16-63); ALKALINE PHOSPHATASE 54 U/L (50-136); ASPARTATE AMINOTRANSFERASE 27 U/L (15-37); BILIRUBIN,TOTAL 0.2 mg/dL (0.2-1.0); CARBON DIOXIDE 26 mmol/L (21-32); CHLORIDE 109 mmol/L (98-107); CREATININE 1.5 mg/dL (0.6-1.3); GLUCOSE 87 mg/dL (74-106); MAGNESIUM 2.3 mg/dL (1.8-2.4); PHOSPHOROUS 3.4 mg/dL (2.5-4.9); TOTAL PROTEIN, SERUM 6.2 g/dL (6.4-8.2); UREA NITROGEN, BLOOD 22 mg/dL (7-18)
[2018-03-28 07:55] LABS: BASOPHILS # (AUTO) 0.1 K/uL (0.0-8.0); BASOPHILS % (AUTO) 0.9 % (0.0-2.0); EOSINOPHILS # (AUTO) 0.4 K/uL (0.0-0.7); EOSINOPHILS % (AUTO) 4.2 % (0.0-7.0); HEMATOCRIT 33.2 % (36.7-47.1); HEMOGLOBIN 11.6 g/dL (12.5-16.3); LYMPHOCYTES # (AUTO) 3.9 K/uL (20.0-40.0); LYMPHOCYTES % (AUTO) 40.1 % (20.5-51.5); MEAN CORPUSCULAR HEMOGLOBIN 34.7 uug (23.8-33.4); MEAN CORPUSCULAR HGB CONC 35 g/dL (32.5-36.3); MEAN CORPUSCULAR VOLUME 99.2 fL (73.0-96.2); MONOCYTES # (AUTO) 0.8 K/uL (2.0-10.0); MONOCYTES % (AUTO) 7.9 % (0.0-11.0); NEUTROPHILS # (AUTO) 4.5 K/uL (1.8-8.9); NEUTROPHILS % (AUTO) 46.9 % (38.5-71.5); PLATELET COUNT (AUTO) 222 K/uL (152-348); RED BLOOD CELL COUNT(AUTO) 3.35 MIL/uL (4.06-5.63); WHITE BLOOD COUNT (AUTO) 9.6 K/uL (3.6-10.2)
[2018-03-28] MEDS: MEGESTROL ACETATE 20 MG TABLET PO SCH ×2 (08:20→17:32)
[2018-03-28] MEDS: FOLIC ACID 1 MG TABLET PO SCH (08:20)
[2018-03-28] MEDS: ACETAMINOPHEN ES 500 MG TABLET PO SCH ×2 (08:21→17:32)
[2018-03-28] MEDS: ASPIRIN EC 81 MG TABLET.DR PO SCH (08:21)
[2018-03-28] MEDS: MULTIVIT, IRON, MIN NO. 8, FA TABLET PO SCH (08:21)
[2018-03-28] MEDS: CLOPIDOGREL 75 MG TABLET PO SCH (08:22)
[2018-03-28] MEDS: FAMOTIDINE 20 MG TABLET PO SCH (08:24)
[2018-03-28] MEDS: THIAMINE HCL 100 MG TABLET PO SCH (08:24)
[2018-03-28] MEDS: PREGABALIN 25 MG CAPSULE PO SCH ×2 (08:24→17:00)
[2018-03-28] MEDS: NICOTINE 21 MG/24HR PATCH TD SCH (08:24)
[2018-03-28] MEDS: TAMSULOSIN HCL 0.4 MG CAP.SR.24H PO SCH (08:24)
[2018-03-28 15:24] VITALS: BP 137/65
[2018-03-28] MEDS: ATORVASTATIN 40 MG TABLET PO SCH (17:32)
[2018-03-28] MEDS: MIRTAZAPINE 15 MG TABLET PO SCH (17:32)
[2018-03-28] MEDS: ATENOLOL 25 MG TABLET PO SCH (17:33)
[2018-03-28] MEDS: METOPROLOL SUCCINATE XL 25 MG TAB.SR.24H PO SCH (17:33)
--- NOTE | 2018-03-28 19:37 | NUR ---
Received pt lying on bed asleep but easily arousable. No acute distress noted. No complaints of pain or discomfort. Breathing even and unlabored with normal respiration. Kept clean, dry and comfortable. Call light and personal belongings within reach. Side rails up x2. Bed locked and in lowest position. All needs attended.
[2018-03-28 20:30] VITALS: BP 123/59
[2018-03-29 06:35] VITALS: BP 116/60
--- NOTE | 2018-03-29 08:07 | NUR ---
Patient awake, ambulating with walker with the physical therapist, not in any form of acute distress. He denies any pain or discomfort at this time.
[2018-03-29 08:14] VITALS: BP 102/49
[2018-03-29] MEDS: NICOTINE 21 MG/24HR PATCH TD SCH (09:05)
[2018-03-29] MEDS: MEGESTROL ACETATE 20 MG TABLET PO SCH ×2 (09:06→18:01)
[2018-03-29] MEDS: ACETAMINOPHEN ES 500 MG TABLET PO SCH ×2 (09:06→18:02)
[2018-03-29] MEDS: MULTIVIT, IRON, MIN NO. 8, FA TABLET PO SCH (09:06)
[2018-03-29] MEDS: TAMSULOSIN HCL 0.4 MG CAP.SR.24H PO SCH (09:06)
[2018-03-29] MEDS: THIAMINE HCL 100 MG TABLET PO SCH (09:06)
[2018-03-29] MEDS: FOLIC ACID 1 MG TABLET PO SCH (09:06)
[2018-03-29] MEDS: ASPIRIN EC 81 MG TABLET.DR PO SCH (09:06)
[2018-03-29] MEDS: CLOPIDOGREL 75 MG TABLET PO SCH (09:06)
[2018-03-29] MEDS: FAMOTIDINE 20 MG TABLET PO SCH (09:06)
[2018-03-29] MEDS: ATENOLOL 25 MG TABLET PO SCH (09:07)
[2018-03-29] MEDS: METOPROLOL SUCCINATE XL 25 MG TAB.SR.24H PO SCH (09:13)
[2018-03-29 16:06] VITALS: BP 116/61
[2018-03-29] MEDS: ATORVASTATIN 40 MG TABLET PO SCH (18:01)
[2018-03-29] MEDS: PREGABALIN 25 MG CAPSULE PO SCH (18:01)
[2018-03-29] MEDS: MIRTAZAPINE 15 MG TABLET PO SCH (18:02)
[2018-03-29] MEDS: BISACODYL 5 MG TABLET.DR PO PRN (18:09)
[2018-03-29 19:30] VITALS: BP 135/62
--- NOTE | 2018-03-29 19:40 | NUR ---
Pt resting comfortably in bed. VSS. Daughter at bedside. No acute distress noted. No c/o pain or discomfort. Pt to be discharged tomorrow. TMS signed. Safety measures maintained. Call light and personal belongings within reach. Will continue to monitor.
[2018-03-29] MEDS: ALPRAZOLAM 0.5 MG TABLET PO PRN (20:23)
--- NOTE | 2018-03-30 07:30 | NUR ---
Received patient awake, alert x4. Not in any form of distress. Denies any pain. For discharge today. With daughter at bedside.
[2018-03-30] MEDS: MEGESTROL ACETATE 20 MG TABLET PO SCH (08:00)
[2018-03-30 08:01] VITALS: BP 121/63
[2018-03-30] MEDS: NICOTINE 21 MG/24HR PATCH TD SCH (08:01)
[2018-03-30] MEDS: ATENOLOL 25 MG TABLET PO SCH (08:01)
[2018-03-30] MEDS: FOLIC ACID 1 MG TABLET PO SCH (08:01)
[2018-03-30] MEDS: MULTIVIT, IRON, MIN NO. 8, FA TABLET PO SCH (08:01)
[2018-03-30] MEDS: ACETAMINOPHEN ES 500 MG TABLET PO SCH (08:01)
[2018-03-30 08:02] VITALS: BP 121/63
[2018-03-30] MEDS: ASPIRIN EC 81 MG TABLET.DR PO SCH (08:02)
[2018-03-30] MEDS: CLOPIDOGREL 75 MG TABLET PO SCH (08:02)
[2018-03-30] MEDS: METOPROLOL SUCCINATE XL 25 MG TAB.SR.24H PO SCH (08:02)
[2018-03-30] MEDS: FAMOTIDINE 20 MG TABLET PO SCH (08:02)
[2018-03-30] MEDS: TAMSULOSIN HCL 0.4 MG CAP.SR.24H PO SCH (08:02)
[2018-03-30] MEDS: THIAMINE HCL 100 MG TABLET PO SCH (08:02)
--- NOTE | 2018-03-30 09:00 | NUR ---
Discharge ordered from Dr. Pringle. Discharge to home with home health. Instructed to take medications as prescribed. Instructed to follow up with PCP. Instructed to ambulate with assistive device. Routine discharge care done. Went home ambulatory accompanied by family member via private transport.
--- NOTE | 2018-04-01 11:06 | NUR ---
INTERDISCIPLINARY TEAM CONFERENCE
--- NOTE | 2018-04-03 07:43 | NUR ---
I agree Addendum: 04/03/18 at 0743 by ADVID YIP OT Amended: Links added.
--- NOTE | 2018-04-03 07:43 | NUR ---
I agree Addendum: 04/03/18 at 0743 by DAVID YIP OT Amended: Links added.
== END 2018-03-30 09:00 | disposition home health service (06) | DRG 57 ==
PROVIDERS: ADMIT Physical Medicine & Rehabilitation Pain Medicine; ATTEND Physical Medicine & Rehabilitation Pain Medicine
DX: I69.320 Aphasia following cerebral infarction (principal); R13.10 Dysphagia, unspecified; I69.322 Dysarthria following cerebral infarction; D64.9 Anemia, unspecified; I69.391 Dysphagia following cerebral infarction; I12.9 Hypertensive chronic kidney disease with stage 1 through stage 4 chronic kidney disease, or unspecified chronic kidney disease; N18.9 Chronic kidney disease, unspecified; F32.9 Major depressive disorder, single episode, unspecified; F41.9 Anxiety disorder, unspecified; M79.606 Pain in leg, unspecified; R63.0 Anorexia; Z68.25 Body mass index [BMI] 25.0-25.9, adult; Z88.8 Allergy status to other drugs, medicaments and biological substances; Z87.891 Personal history of nicotine dependence; R53.1 Weakness; G89.29 Other chronic pain; M51.36 Other intervertebral disc degeneration, lumbar region; M48.061 Spinal stenosis, lumbar region without neurogenic claudication
CPT/HCPCS: 36415; 70030-TC; 71045; 72100; 83735; 84100; 85025; 87086; 92507; 92523; 92526; 92610; 93005; 97110; 97112; 97116; 97530; 97535; A4663; A9150; J8999; Q0163